=== PATIENT | male | born 1960 | race Caucasian/White ===

== ENCOUNTER 2016-08-14 14:51 | Inpatient (IN) | payer OTHER ==
[~2016-08-14] VITALS: Ht 182.9 cm; Wt 129.8 kg
[2016-08-14 15:55] LABS: HEMATOCRIT 46.7 % (38.0-50.0); MCH 32.2 PG (29.0-34.0); MCHC 33.6 G/DL (30.0-36.0); MCV 95.9 FL (86-99); MEAN PLAT.VOLUME 9.7 uM^3 (9.0-12.4); PLATELET COUNT 212 K/uL (156-360); RBC DIS.WIDTH-CV 12.4 % (11.8-14.6); RBC DIS.WIDTH-SD 44.1 % (39-53); RED BLOOD COUNT 4.87 M/uL (4.00-5.50); WHITE BLOOD COUNT 7.6 K/uL (4.1-10.2)
[2016-08-14 16:04] LABS: CHLORIDE 102 mEq/L (99-109); POTASSIUM 4.3 mEq/L (3.7-5.4); SODIUM 141 mEq/L (136-147)
[2016-08-14 16:06] LABS: GLUCOSE 139 mg/dL (70-99)
[2016-08-14 16:07] LABS: ANION GAP 16 MEQ/L (2-14)
[2016-08-14 16:10] LABS: GFR ESTIMATE (CALCULATED) 52 mL/min/; UREA NITROGEN (BUN) 28 mg/dL (9-23)
[2016-08-14] MEDS ORDERED: LISINOPRIL40 MG PO (18:11)
[2016-08-14] MEDS ORDERED: HYDROCHLOROTHIA25 MG PO (18:12)
[2016-08-14] MEDS ORDERED: METFORMIN HCL1000 MG PO (18:15)
[2016-08-14 18:45] LABS: TROP-I INTERPRETATION NEGATIVE; TROPONIN-I < 0.01 ng/mL (0.0-0.30)
[2016-08-14] MEDS ORDERED: CLEOCIN300 MG PO (19:18)
[2016-08-14] MEDS ORDERED: METOPROLOL SUCC50 MG PO (19:19)
[2016-08-14] MEDS ORDERED: CYANOCOBALAM1000 MCG PO (19:19)
[2016-08-14] MEDS ORDERED: ATORVASTATIN CA80 MG PO (19:19)
[2016-08-14] MEDS ORDERED: NOVOLOG PE100 UNITS/ SC (19:20)
[2016-08-14] MEDS ORDERED: INVOKANA300 MG PO (19:20)
[2016-08-14] MEDS ORDERED: LANTUS 3 M100 UNITS1 SC (19:20)
[2016-08-14] MEDS ORDERED: [UNRECOGNIZED DRUG - CODE] TP (19:26)
[2016-08-14 22:08] LABS: Estimated Average Glucose 235 mg/dL (70-123)
[2016-08-14 22:10] VITALS: BP 98/60
[2016-08-14 22:19] LABS: HEMOGLOBIN A1c (GLYCOHEMOGLOB) 9.8 % HGB (Below 5.7)
[2016-08-14 22:25] LABS: HDL CHOLESTEROL 36 MG/DL (Desirable>=40); LDL CHOLESTEROL 86 mg/dL (Desirable<100); NON-HDL CHOLESTEROL 134 mg/dL (Desirable<160); TOTAL CHOLESTEROL 170 mg/dL (Desirable<200); TRIGLYCERIDES 239 MG/DL (Normal: <150)
[2016-08-15 03:50] VITALS: BP 132/70
[2016-08-15 06:26] LABS: MCHC 33.3 G/DL (30.0-36.0); MCV 96.1 FL (86-99); MEAN PLAT.VOLUME 9.8 uM^3 (9.0-12.4); PLATELET COUNT 175 K/uL (156-360); RBC DIS.WIDTH-CV 12.5 % (11.8-14.6); RBC DIS.WIDTH-SD 44.5 % (39-53); RED BLOOD COUNT 4.37 M/uL (4.00-5.50)
[2016-08-15 06:39] LABS: WHITE BLOOD COUNT 5.2 K/uL (4.1-10.2)
[2016-08-15 07:30] VITALS: BP 129/74
[2016-08-15 07:39] LABS: POINT-OF-CARE METER ID UU13113831
[2016-08-15 08:30] LABS: ANION GAP 10 MEQ/L (2-14); CHLORIDE 101 MEQ/L (99-109); POTASSIUM 4.4 MEQ/L (3.7-5.4); SAMPLE HEMOLYSIS CHECK 0; SAMPLE ICTERIC CHECK 0; SAMPLE LIPEMIA CHECK 0; SODIUM 139 MEQ/L (136-147)
[2016-08-15 08:35] LABS: GFR ESTIMATE (CALCULATED) > 59 mL/min/; GLUCOSE 145 mg/dL (70-99); UREA NITROGEN (BUN) 26 mg/dL (9-23)
[2016-08-15 11:40] VITALS: BP 128/80
[2016-08-15 12:09] LABS: POINT-OF-CARE METER ID UU13113831
[2016-08-15 15:38] VITALS: BP 134/80
[2016-08-15 18:21] VITALS: BP 131/77
[2016-08-15 19:47] VITALS: BP 132/75
[2016-08-15 21:11] LABS: POINT-OF-CARE METER ID UU13113698
[2016-08-16] VITALS (7 sets, daily range): BP systolic 104–163; BP diastolic 71–96
[2016-08-16 07:07] LABS: EOSINOPHIL (%) 3.1 % (0-5); EOSINOPHIL COUNT 0.1 K/uL (0-0.3); IMMATURE GRANULOCYTE (%) 0.2 % (0.0-0.7); INSTRUMENT ABS NEUTROPHIL CT 2.5 K/uL; LYMPHOCYTE COUNT 1.4 K/uL (1.0-2.8); MCH 31.8 PG (29.0-34.0); MCHC 33.4 G/DL (30.0-36.0); MCV 95.2 FL (86-99); MEAN PLAT.VOLUME 9.9 uM^3 (9.0-12.4); MONOCYTE (%) 11.2 % (3-12); MONOCYTE COUNT 0.5 K/uL (0-0.8); NEUTROPHIL (%) 54.6 % (45-76); NEUTROPHIL COUNT 2.5 K/uL (1.8-6.4); PLATELET COUNT 186 K/uL (156-360); RBC DIS.WIDTH-CV 12.5 % (11.8-14.6); RBC DIS.WIDTH-SD 43.8 % (39-53); RED BLOOD COUNT 4.62 M/uL (4.00-5.50); WHITE BLOOD COUNT 4.5 K/uL (4.1-10.2)
[2016-08-16 07:23] LABS: ANION GAP 13 MEQ/L (2-14); CHLORIDE 99 MEQ/L (99-109); GFR ESTIMATE (CALCULATED) > 59 mL/min/; GLUCOSE 185 mg/dL (70-99); MAGNESIUM 2.1 mg/dl (1.3-2.7); POTASSIUM 4.5 MEQ/L (3.7-5.4); SAMPLE HEMOLYSIS CHECK 0; SAMPLE ICTERIC CHECK 0; SAMPLE LIPEMIA CHECK 0; SODIUM 137 MEQ/L (136-147); UREA NITROGEN (BUN) 20 mg/dL (9-23)
[2016-08-16 08:00] LABS: POINT-OF-CARE METER ID UU14174216
[2016-08-16 11:18] LABS: POINT-OF-CARE METER ID UU13113698; POINT-OF-CARE USER ID NUTSLF44
[2016-08-16 16:54] LABS: POINT-OF-CARE METER ID UU13113781
[2016-08-16 21:08] LABS: POINT-OF-CARE METER ID UU14174216
[2016-08-17 03:21] VITALS: BP 107/64
[2016-08-17 07:45] VITALS: BP 112/72
[2016-08-17 07:45] LABS: POINT-OF-CARE METER ID UU13113781
[2016-08-17] MEDS ORDERED: ASPIRIN EC325 MG PO (08:39)
[2016-08-17] MEDS ORDERED: CLOPIDOGREL75 MG PO ×2 (08:41→15:05)
[2016-08-17] MEDS ORDERED: ATORVASTATIN CA80 MG PO (15:06)
[2016-08-17] MEDS ORDERED: ASPIRIN325 MG PO (15:07)
[2016-08-17] MEDS ORDERED: VASHE WOUND TH475 ML IR (15:10)
[2016-08-17] MEDS ORDERED: NOVOLOG PE100 UNITS/ SC ×3 (15:13→15:14)
== END 2016-08-17 09:41 | disposition home or self-care (01) | DRG 65 ==
LOC: EME 14:51 → EDOF 21:18 → 5WEST 21:18 → EDOF 21:18 → 5WEST 22:03 → 4EAST 08-15 11:56 → 5WEST 08-15 11:56 → 4EAST 08-15 18:03
PROVIDERS: Hospitalist; Internal Medicine
PROC: 0HDNXZZ Extraction of Left Foot Skin, External Approach (ICD-10-PCS; principal; 2016-08-15)
DX: I63.9 Cerebral infarction, unspecified (principal); R47.01 Aphasia; N17.9 Acute kidney failure, unspecified; E11.621 Type 2 diabetes mellitus with foot ulcer; L97.529 Non-pressure chronic ulcer of other part of left foot with unspecified severity; I10 Essential (primary) hypertension; E78.00 Pure hypercholesterolemia, unspecified; E78.5 Hyperlipidemia, unspecified; G43.909 Migraine, unspecified, not intractable, without status migrainosus; I95.9 Hypotension, unspecified; E66.9 Obesity, unspecified; I25.10 Atherosclerotic heart disease of native coronary artery without angina pectoris; Z68.39 Body mass index [BMI] 39.0-39.9, adult; Z79.82 Long term (current) use of aspirin; Z79.4 Long term (current) use of insulin; Z87.891 Personal history of nicotine dependence; Z95.1 Presence of aortocoronary bypass graft; Z88.1 Allergy status to other antibiotic agents
CPT/HCPCS: 70450; 70544; 70551; 71020; 80048; 80061; 82607; 82746; 82948; 83036; 83735; 84443; 84484; 85025; 85027; 92523 GN; 93005; 93306; 93880; 99281; 99285; G0378; J1650; J1815; J7030

== ENCOUNTER 2016-08-17 11:13 | Inpatient (IN) | payer OTHER ==
[~2016-08-17] VITALS: Ht 182.9 cm; Wt 133.4 kg
[~2016-08-17 11:13] MED LIST: ASPIRIN EC325 MG PO; ATORVASTATIN CA80 MG PO; CLEOCIN300 MG PO; CLOPIDOGREL75 MG PO; CYANOCOBALAM1000 MCG PO; HYDROCHLOROTHIA25 MG PO; INVOKANA300 MG PO; LANTUS 3 M100 UNITS1 SC; LISINOPRIL40 MG PO; METFORMIN HCL1000 MG PO; METOPROLOL SUCC50 MG PO; NOVOLOG PE100 UNITS/ SC; [UNRECOGNIZED DRUG - CODE] TP
[2016-08-17 13:03] LABS: HEMATOCRIT 44.4 % (38.0-50.0); MCH 32.6 PG (29.0-34.0); MCV 95.9 FL (86-99); MEAN PLAT.VOLUME 10.1 uM^3 (9.0-12.4); PLATELET COUNT 203 K/uL (156-360); RBC DIS.WIDTH-CV 12.3 % (11.8-14.6); RBC DIS.WIDTH-SD 43.3 % (39-53); RED BLOOD COUNT 4.63 M/uL (4.00-5.50); WHITE BLOOD COUNT 5.5 K/uL (4.1-10.2)
[2016-08-17 13:10] LABS: PROTHROMBIN TIME 10.3 (9.2-11.2); PTT 27.8 (25-32)
[2016-08-17 13:23] LABS: CHLORIDE 101 mEq/L (99-109); POTASSIUM 4.9 mEq/L (3.7-5.4); SODIUM 136 mEq/L (136-147)
[2016-08-17 13:25] LABS: GLUCOSE 250 mg/dL (70-99)
[2016-08-17 13:26] LABS: ANION GAP 11 MEQ/L (2-14)
[2016-08-17 13:28] LABS: GFR ESTIMATE (CALCULATED) > 59 mL/min/
[2016-08-17 13:29] LABS: UREA NITROGEN (BUN) 25 mg/dL (9-23)
[2016-08-17] MEDS ORDERED: CLOPIDOGREL75 MG PO (15:05)
[2016-08-17] MEDS ORDERED: ATORVASTATIN CA80 MG PO (15:06)
[2016-08-17] MEDS ORDERED: ASPIRIN325 MG PO (15:07)
[2016-08-17] MEDS ORDERED: VASHE WOUND TH475 ML IR (15:10)
[2016-08-17] MEDS ORDERED: NOVOLOG PE100 UNITS/ SC ×3 (15:13→15:14)
[2016-08-17 18:34] VITALS: BP 142/94
[2016-08-17 21:16] LABS: POINT-OF-CARE METER ID UU13113698
[2016-08-18 00:11] VITALS: BP 119/67
[2016-08-18 05:59] VITALS: BP 124/76
[2016-08-18 07:40] VITALS: BP 137/73
[2016-08-18 15:40] VITALS: BP 126/91
[2016-08-18 19:50] VITALS: BP 139/79
[2016-08-18 22:17] LABS: POINT-OF-CARE METER ID UU14174216
[2016-08-19 00:08] VITALS: BP 133/77
[2016-08-19 03:06] VITALS: BP 156/92
[2016-08-19 06:50] LABS: EOSINOPHIL (%) 3.4 % (0-5); EOSINOPHIL COUNT 0.1 K/uL (0-0.3); HEMATOCRIT 40.1 % (38.0-50.0); IMMATURE GRANULOCYTE (%) 0.2 % (0.0-0.7); INSTRUMENT ABS NEUTROPHIL CT 2.1 K/uL; LYMPHOCYTE COUNT 1.4 K/uL (1.0-2.8); MCH 32.3 PG (29.0-34.0); MCHC 33.7 G/DL (30.0-36.0); MCV 95.9 FL (86-99); MONOCYTE (%) 10.3 % (3-12); MONOCYTE COUNT 0.4 K/uL (0-0.8); NEUTROPHIL (%) 51.2 % (45-76); NEUTROPHIL COUNT 2.1 K/uL (1.8-6.4); PLATELET COUNT 162 K/uL (156-360); RBC DIS.WIDTH-CV 12.5 % (11.8-14.6); RBC DIS.WIDTH-SD 43.7 % (39-53); RED BLOOD COUNT 4.18 M/uL (4.00-5.50); WHITE BLOOD COUNT 4.2 K/uL (4.1-10.2)
[2016-08-19 07:01] LABS: ANION GAP 7 MEQ/L (2-14); CHLORIDE 108 MEQ/L (99-109); GFR ESTIMATE (CALCULATED) > 59 mL/min/; POTASSIUM 4.2 MEQ/L (3.7-5.4); SAMPLE HEMOLYSIS CHECK 0; SAMPLE ICTERIC CHECK 0; SAMPLE LIPEMIA CHECK 0; SODIUM 141 MEQ/L (136-147); UREA NITROGEN (BUN) 17 mg/dL (9-23)
[2016-08-19 07:02] LABS: GLUCOSE 118 mg/dL (70-99)
[2016-08-19 07:25] VITALS: BP 134/81
[2016-08-19 12:04] VITALS: BP 167/93
[2016-08-19 15:50] VITALS: BP 164/88
[2016-08-19 19:05] VITALS: BP 125/78
[2016-08-19 21:02] LABS: POINT-OF-CARE METER ID UU13113781; POINT-OF-CARE USER ID ENVMNS
[2016-08-20 00:27] VITALS: BP 127/77
[2016-08-20 04:00] VITALS: BP 165/87
[2016-08-20 07:00] LABS: EOSINOPHIL COUNT 0.1 K/uL (0-0.3); HEMATOCRIT 42.4 % (38.0-50.0); IMMATURE GRANULOCYTE (%) 0.2 % (0.0-0.7); INSTRUMENT ABS NEUTROPHIL CT 2.5 K/uL; LYMPHOCYTE COUNT 1.3 K/uL (1.0-2.8); MCH 32.1 PG (29.0-34.0); MCHC 33.7 G/DL (30.0-36.0); MCV 95.3 FL (86-99); MONOCYTE (%) 9.9 % (3-12); MONOCYTE COUNT 0.4 K/uL (0-0.8); NEUTROPHIL (%) 57.4 % (45-76); NEUTROPHIL COUNT 2.5 K/uL (1.8-6.4); PLATELET COUNT 180 K/uL (156-360); RBC DIS.WIDTH-CV 12.5 % (11.8-14.6); RED BLOOD COUNT 4.45 M/uL (4.00-5.50); WHITE BLOOD COUNT 4.3 K/uL (4.1-10.2)
[2016-08-20 07:54] LABS: POINT-OF-CARE METER ID UU14174216
[2016-08-20 08:40] VITALS: BP 137/76
[2016-08-20 09:23] LABS: CHLORIDE 108 mEq/L (99-109); SODIUM 142 mEq/L (136-147)
[2016-08-20 09:24] LABS: GLUCOSE 135 mg/dL (70-99)
[2016-08-20 09:26] LABS: ANION GAP 12 MEQ/L (2-14)
[2016-08-20 09:28] LABS: GFR ESTIMATE (CALCULATED) > 59 mL/min/
[2016-08-20 09:29] LABS: UREA NITROGEN (BUN) 16 mg/dL (9-23)
[2016-08-20 11:50] VITALS: BP 159/95
== END 2016-08-20 12:10 | disposition home or self-care (01) | DRG 66 ==
LOC: EME 11:13 → EDOF 13:30 → 4EAST 13:30
PROVIDERS: Emergency Medicine; Hospitalist; Internal Medicine
DX: I63.9 Cerebral infarction, unspecified (principal); I95.9 Hypotension, unspecified; E11.65 Type 2 diabetes mellitus with hyperglycemia; I67.82 Cerebral ischemia; E11.621 Type 2 diabetes mellitus with foot ulcer; I10 Essential (primary) hypertension; L97.521 Non-pressure chronic ulcer of other part of left foot limited to breakdown of skin; G43.109 Migraine with aura, not intractable, without status migrainosus; F10.10 Alcohol abuse, uncomplicated; E66.9 Obesity, unspecified; I25.10 Atherosclerotic heart disease of native coronary artery without angina pectoris; E78.00 Pure hypercholesterolemia, unspecified; H53.462 Homonymous bilateral field defects, left side; Z95.5 Presence of coronary angioplasty implant and graft; Z79.02 Long term (current) use of antithrombotics/antiplatelets; Z79.82 Long term (current) use of aspirin; Z88.0 Allergy status to penicillin; Z79.84 Long term (current) use of oral hypoglycemic drugs; Z96.649 Presence of unspecified artificial hip joint; Z79.4 Long term (current) use of insulin; Z87.891 Personal history of nicotine dependence; Z82.49 Family history of ischemic heart disease and other diseases of the circulatory system; Z83.3 Family history of diabetes mellitus
CPT/HCPCS: 70450; 70551; 80048; 82948; 85025; 85027; 85610; 85730; 93005; 99281; 99285; J1650; J1815; J7030

== ENCOUNTER 2017-07-07 08:06 | Emergency (ER) | payer OTHER ==
[~2017-07-07] VITALS: Ht 182.9 cm; Wt 126.3 kg
[~2017-07-07 08:06] MED LIST changes: +ASPIRIN325 MG PO; +VASHE WOUND TH475 ML IR
[2017-07-07 09:02] LABS: APPEARANCE CLEAR ((CLEAR)); BILIRUBIN NEGATIVE; BLOOD NEGATIVE; COLOR YELLOW ((YELLOW)); GLUCOSE (STRIP) >=500; KETONES 5; LEUKOCYTES NEGATIVE; NITRITE NEGATIVE; PROTEIN (STRIP) NEGATIVE; UCUL ADDED? NO; UROBILINOGEN 0.2 MG/DL (0.2-1.0)
[2017-07-07 09:11] LABS: HEMATOCRIT 44.1 % (38.0-50.0); HEMOGLOBIN 15.4 G/DL (12.5-16.6); MCHC 34.9 G/DL (30.0-36.0); MCV 94.6 FL (86-99); PLATELET COUNT 125 K/uL (156-360); RBC DIS.WIDTH-CV 13.1 % (11.8-14.6); RBC DIS.WIDTH-SD 45.1 % (39-53); RED BLOOD COUNT 4.66 M/uL (4.00-5.50); WHITE BLOOD COUNT 5.3 K/uL (4.1-10.2)
[2017-07-07 09:21] LABS: ALBUMIN 4.3 g/dL (3.2-4.8); CHLORIDE 103 mEq/L (99-109); POTASSIUM 4.7 mEq/L (3.7-5.4); SODIUM 140 mEq/L (136-147)
[2017-07-07 09:23] LABS: GLUCOSE 254 mg/dL (70-99); TOTAL PROTEIN 7.4 g/dL (6.4-8.3)
[2017-07-07 09:50] LABS: TOTAL BILIRUBIN 0.7 MG/DL (0.0-1.0)
[2017-07-07 09:56] LABS: ALKALINE PHOSPHATASE 68 IU/L (3-129); ALT (GPT) 21 IU/L (3-49); AST (GOT) 18 IU/L (2-34); CREATININE 1.1 MG/DL (0.6-1.3); GFR ESTIMATE (CALCULATED) > 59 mL/min/ (58.99-99999); UREA NITROGEN (BUN) 19 mg/dL (9-23)
[2017-07-07] MEDS ORDERED: CLINDAMYCIN HC150 MG PO (13:03)
[2017-07-07] MEDS ORDERED: BACTRIM,SEPT1 TABLET PO (13:03)
[2017-07-07] MEDS ORDERED: CLEOCIN300 MG PO (13:03)
[2017-07-07 14:34] VITALS: BP 132/86
== END 2017-07-07 14:34 | disposition home or self-care (01) ==
LOC: EME 08:06
PROVIDERS: Nurse Practitioner Family
DX: L03.116 Cellulitis of left lower limb (principal); S92.352A Displaced fracture of fifth metatarsal bone, left foot, initial encounter for closed fracture; E11.9 Type 2 diabetes mellitus without complications; I10 Essential (primary) hypertension; I69.320 Aphasia following cerebral infarction; Z79.4 Long term (current) use of insulin; Z79.84 Long term (current) use of oral hypoglycemic drugs; Z79.82 Long term (current) use of aspirin; Z87.891 Personal history of nicotine dependence; Z95.1 Presence of aortocoronary bypass graft; Z86.14 Personal history of Methicillin resistant Staphylococcus aureus infection; Z96.643 Presence of artificial hip joint, bilateral; Z90.89 Acquired absence of other organs; Z90.49 Acquired absence of other specified parts of digestive tract; Z88.0 Allergy status to penicillin
CPT/HCPCS: 73590; 73630; 80053; 81003; 85027; 93971; 99281; 99285; J3370